=== PATIENT | male | born 1955 | race Caucasian/White ===

== ENCOUNTER 2021-01-28 09:32 | Day surgery (SDC) | payer OTHER ==
[2021-01-28 10:16] LABS: MPV 8.1 fL (7.6-11.3)
[2021-01-28 10:20] LABS: Protime INR 1.1
[2021-01-28 10:31] VITALS: BP 105/58; TEMP 97.8; O2SAT 95; BMI 31.8
--- NOTE | 2021-01-28 10:52 | RAD REPORT ---
EXAM DESCRIPTION: MRI - Brain Wo Cont - 01/28/2021 9:26 am CLINICAL HISTORY: F03.9 COMPARISON: No comparisons TECHNIQUE: Multi-sequence, multiplanar MR imaging of the brain was performed without contrast. FINDINGS: No intracranial hemorrhage, hydrocephalus or extra-axial fluid collections.Mild generalize d brain atrophy is present. No edema or shift of midline structures. No findings to suspect brain mas s. DWI is negative for acute CVA. Midline structures are normally formed. Mastoid air cells and paranasal sinuses are clear. IMPRESSION: No acute or aggressive intracranial abnormalities. Mild brain atrophy.
== END 2021-01-28 10:50 | disposition home or self-care (01) ==
LOC: DS 09:32
PROVIDERS: ATTEND Psychiatry & Neurology Neurology with Special Qualifications in Child Neurology
DX: F03.90 Unspecified dementia, unspecified severity, without behavioral disturbance, psychotic disturbance, mood disturbance, and anxiety (principal); Z53.09 Procedure and treatment not carried out because of other contraindication
CPT/HCPCS: 36415; 70551; 85049; 85610; 85730

== ENCOUNTER 2021-05-06 08:43 | Day surgery (SDC) | payer OTHER ==
[2021-05-01 09:12] LABS: Absolute Lymphocytes (CBC) 1.2 K/uL (0.7-4.9); Hematocrit 45.8 % (39.6-49.0); Lymphocytes % 23.8 % (15.3-44.8); MPV 8.4 fL (7.6-11.3); RBC Red Blood Cell Count 5.08 M/uL (4.33-5.43)
[2021-05-01 09:25] LABS: Potassium 3.9 mmol/L (3.5-5.1)
[2021-05-01 09:31] LABS: Protime INR 1.12
--- NOTE | 2021-05-01 09:55 | RAD REPORT ---
EXAM DESCRIPTION: RAD - Chest Pa And Lat (2 Views) - 05/01/2021 8:43 am CLINICAL HISTORY: Pre op TURP Chest pain. COMPARISON: Chest Pa And Lat (2 Views) dated 08/27/2016; CHEST PA AND LAT 2 VIEW dated 08/27/2009 FINDINGS: The lungs are clear. The heart is normal in size. No displaced fractures. IMPRESSION: No acute or concerning finding suspected.
[~2021-05-06 08:43] MED LIST: AMPICILLIN SODIUM 2 GM in NA CHLORIDE 0.9% 100 ML IVPB SCH; Gentamicin Inj 240 MG in NA CHLORIDE 0.9% 100 ML IVPB SCH
[2021-05-06] MEDS ORDERED: NA CHLORIDE 0.9% 1,000 ML ONE (09:06)
[2021-05-06] MEDS ORDERED: ACETAMINOPHEN 500 MG TAB ONE (09:55)
[2021-05-06] MEDS ORDERED: LIDOCAINE 1% MPF 5 ML VIAL ONE (11:14)
[2021-05-06] MEDS ORDERED: FENTANYL CITR 100 MCG/2 ML ONE (11:14)
[2021-05-06] MEDS ORDERED: propofoL 200 MG/20 ML VIAL IV ONE (11:14)
[2021-05-06] MEDS ORDERED: EPHEDRINE SULF 50 MG/ML VIAL ONE (11:45)
[2021-05-06] MEDS ORDERED: NS 0.9% VIAL 10 ML ONE ×2 (11:45→11:59)
[2021-05-06] MEDS ORDERED: dexAMETHasone 10 MG/ML VIAL ONE (11:54)
[2021-05-06] MEDS ORDERED: Phenylephrine HCl 10 MG/ML 1 ML VIAL ONE (11:58)
[2021-05-06] MEDS ORDERED: ONDANSETRON 4 MG/2 ML VIAL ONE (11:58)
[2021-05-06 13:20] VITALS: TEMP 97.2
[2021-05-06 13:49] VITALS: O2SAT 94
[2021-05-06 14:57] VITALS: BP 113/55
--- NOTE | 2021-05-06 23:54 | OP ---
Surgeon: WILLIAN STEINBERG Preoperative Diagnosis: BPH with urinary retention and lower urinary obstructive symptoms. Postoperative Diagnosis: 1.BPH with urinary retention and lower urinary obstructive symptoms. 2.Balanoposthitis. Principal Procedure: Bipolar transurethral resection of the prostate. Indication For Procedure: Mr. Wright is a 65-year-old gentleman who presented to [facility]rology Clinic hav ing undergone acute urinary retention. He had previously undergone a TURP over 12 years ago, and und erwent cystoscopic evaluation revealing a degree of lateral lobar hypertrophy with a patent bladder n lashaun. As a result, I counseled him on the potential for neuropathic dysfunction of the bladder, which while he had no neurologic diagnoses, he did have a lower extremity tremor, which may have been sugg estive of underlying neurologic disease. As a result, he elected to proceed with bipolar TURP, and i f his urinary symptoms persisted, we would consider urodynamics and a neurologic evaluation. Description Of Procedure: The patient was consented in the preoperative holding area before being tr ansferred to the operative suite where general anesthesia was induced. He was given ampicillin and g entamicin IV antimicrobial prophylaxis, and pneumo boots were provided for DVT prophylaxis. He was p laced in the lithotomy position, padded and secured to the table appropriately. His genitalia were p repped using Hibiclens and draped in standard fashion. The case was begun using urethral sounds to d ilate the meatus and fossa navicularis to 30-Danish. There was evidence of significant balanoposthit is with some BXO-related changes of the glans around the meatus. After dilating the urethra, the 26- Danish resectoscope sheath using a visual chocolate finisher operator was used to traverse the urethra and into the blad bernadette with ease. The bladder was surveyed in its entirety after being decompressed of urine, and no mu cosal lesions, foreign bodies or stones were noted throughout. The previously observed lateral lobar hypertrophy was again observed with regrowth of adenoma in the region of the bladder neck, but persi stent residual lateral lobar hypertrophy on the right as well as the left. I thus resected the adeno matous regrowth from the median lobe that had previously been intravesically projecting, and resected that median channel down to the verumontanum. I then continued the resection into the left lateral lobe of the prostate, taking it all the way to the apex at the bladder neck and more conservatively i n the region of the apex of the prostate. A similar resection was performed on the right lateral lob e of the prostate, resecting the bladder neck until it was widely patent, and fat visualized with a m ore conservative resection but yet leaving it widely patent at the apex of the prostate. Once a smoo th channel was created, all prostate chips were Ellik evacuated from the bladder. Fulguration of ble eding was performed along the way, but then with his bladder decompressed, I fulgurated the entirety of the prostatic fossa until it was completely hemostatic. I then decompressed his bladder again and assessed the prostatic fossa for any intraluminal adenomatous tissue, and I resected any additional tissue seen. Once completely and widely patent from the verumontanum through to the bladder neck, I then ensured all prostate chips were removed, and then again fulgurated the prostatic fossa for any o ozing vessels. I then backfilled his bladder and removed the resectoscope. I then passed a 22-Frenc h 3-way Prado catheter into his bladder with ease, and 30 cc of sterile water was placed in the ballo on. The catheter was placed to moderate traction, and CBI was connected. The efflux was completely clear. He was taken out of the lithotomy position, awakened from general anesthesia, transferred to a stretcher, and then transferred to the recovery room in good condition. Complications: None. Discharge Disposition: I will treat balanoposthitis with triamcinolone nystatin ointment applied twi ce daily for the next 6 weeks. Otherwise, he will be discharged with a catheter with anticipated fol lowup for catheter removal on Wednesday. Alternatively, Wednesday morning would be an option as long as he demonstrates he is able to void without equivocation. WR/MODL Voice ID: [id number] Report ID: [id number]
== END 2021-05-06 14:50 | disposition home or self-care (01) ==
LOC: OR 08:43
PROVIDERS: ATTEND Urology
PROC: 0VB07ZZ Excision of Prostate, Via Natural or Artificial Opening (ICD-10-PCS; principal; 2021-05-06 10:30)
DX: N40.1 Benign prostatic hyperplasia with lower urinary tract symptoms (principal); N47.6 Balanoposthitis; E11.9 Type 2 diabetes mellitus without complications; Z20.822 Contact with and (suspected) exposure to COVID-19
CPT/HCPCS: 93005; 87088; 85025; 87086; 80048; 36415; 85610; 82947 ×2; 88305; 71046; 52630; U0002; J2704; J2370; J1580; J3010; J1100; J7030; J2405; J0290

== ENCOUNTER → 2023-02-28 | Emergency (ER) | payer OTHER ==
[~2023-02-28] MED LIST changes: -AMPICILLIN SODIUM 2 GM in NA CHLORIDE 0.9% 100 ML IVPB SCH; +FLEET ENEMA ADULT PR ONE; -Gentamicin Inj 240 MG in NA CHLORIDE 0.9% 100 ML IVPB SCH; +MAGNESIUM CITRATE 300 ML BOT ONE; +NA CHLORIDE 0.9% 1,000 ML ONE
[2023-02-28 16:11] LABS: Absolute Lymphocytes (CBC) 1.7 K/uL (0.7-4.9); Lymphocytes % 30.7 % (15.3-44.8); MCV 89.4 fL (80-100); MPV 8.2 fL (7.6-11.3); Platelets 238 thou/uL (152-406); RBC Red Blood Cell Count 5.14 M/uL (4.33-5.43)
[2023-02-28 16:25] LABS: Albumin 4.1 g/dL (3.4-5.0); Bilirubin Total 0.5 mg/dL (0.2-1.0); Potassium 3.7 mEq/L (3.5-5.1); Protein, Total 7.4 g/dL (6.4-8.2)
--- NOTE | 2023-02-28 17:10 | RAD REPORT ---
EXAM DESCRIPTION: CTAbdomen Pelvis W Contrast - 02/28/2023 5:00 pm CLINICAL HISTORY: Abdominal pain. Constipation;Abd pain COMPARISON: No comparisons TECHNIQUE: Biphasic CT imaging of the abdomen and pelvis was performed with 100 ml non-ionic IV cont rast. All CT scans are performed using dose optimization technique as appropriate and may include automated exposure control or mA/KV adjustment according to patient size. FINDINGS: The lung bases are clear. The liver, spleen, pancreas, adrenal glands and kidneys are within normal limits. No bowel obstruction, free air, free fluid or abscess. Prominent sigmoid diverticulosis coli of the s igmoid colon with moderate stool retention. The appendix is normal. No evidence of significant lymph adenopathy. Small fat containing umbilical hernia. No suspicious bony findings. IMPRESSION: Prominent sigmoid diverticulosis coli with significant stool retention in the colon. Fol lowup colonoscopy would be suggested for follow-up.
--- NOTE | 2023-02-28 17:46 | EDPHYS ---
Physician Documentation [facility] Name: Tu Wright III Age: 67 yrs Sex: Male : 1955 Arrival Date: 02/28/2023 Time: 14:45 Bed 13 Private MD: ED Physician Keny Curry HPI: 02/28 16:24 This 67 yrs old Male presents to ER via Ambulatory with complaints of Constipation. rn 16:24 The patient presents with abdominal pain in the left lower quadrant. rn 16:25 Onset: The symptoms/episode began/occurred 3 day(s) ago. The symptoms do not radiate. rn Associated signs and symptoms: Pertinent positives: constipation, Pertinent negatives: nausea and vomiting, blood in stools, chest pain, fever, shortness of breath. Modifying factors: The symptoms are alleviated by nothing, the symptoms are aggravated by nothing. Severity of pain: At its worst the pain was mild in the emergency department the pain is unchanged. The patient has been recently seen by a physician:. Patient reports constipation. Has chronic constipation and requires laxatives to go to the bathroom. Has been having abdominal pain and constipation for 3 days. Seen at [place] [facility] and states workup negative. Discharged home. Still is only having liquid stool passed but no formed stool. Mild lower abdominal pain. History of diverticulosis. No blood in stool. No vomiting. No fever.. Historical: - Allergies: 15:18 No Known Allergies; hb - Home Meds: 15:20 Crestor 20 mg oral tablet 1 tab daily [Active]; Tradjenta 5 mg oral tablet 1 tab daily hb [Active]; Abilify 2 mg oral tablet 1 tab daily [Active]; lamotrigine 100 mg oral tablet 1 tab daily [Active]; clonazepam 2 mg Oral tablet 1 tab 2 times per day [Active]; metoprolol tartrate 50 mg Oral tablet daily [Active]; memantine 10 mg oral tablet 2 tab daily [Active]; Linzess 290 mcg oral capsule daily [Active]; melatonin 10 mg Oral tablet 2 tabs once daily at bedtime [Active]; - PMHx: 15:18 Irritable bowel syndrome; Diabetes mellitus; Hypertensive disorder; Pancreatitis; hb - Immunization history:: Adult Immunizations unknown. - Social history:: Smoking status: Patient denies any tobacco usage or history of. - Family history:: not pertinent. - Hospitalizations: : No recent hospitalization is reported. ROS: 16:25 Constitutional: Negative for fever, chills, and weight loss, Cardiovascular: Negative rn for chest pain, palpitations, and edema, Respiratory: Negative for shortness of breath, cough, wheezing, and pleuritic chest pain, Abdomen/GI: Positive for abdominal pain and constipation MS/Extremity: Negative for injury and deformity, Skin: Negative for injury, rash, and discoloration, Neuro: Negative for headache, weakness, numbness, tingling, and seizure, Exam: 16:25 Constitutional: This is a well developed, well nourished patient who is awake, alert, rn and in no acute distress. Cardiovascular: Regular rate and rhythm. No pulse deficits. Respiratory: No increased work of breathing, no retractions or nasal flaring. Abdomen/GI: Soft, mild suprapubic and left lower quadrant tenderness without guarding or rebound. No masses Vital Signs: 15:14 BP 116 / 78; Pulse 62; Resp 18; Temp 97.6; Pulse Ox 100% ; Weight 97.52 kg; Height 6 hb ft. 0 in. ; Pain 5/10; 16:14 BP 128 / 72; Pulse 64; Resp 18; Pulse Ox 100% ; cp4 17:48 BP 132 / 74; Pulse 61; Resp 18; Pulse Ox 100% ; cp4 15:14 Body Mass Index 29.16 (97.52 kg, 182.88 cm) hb 15:14 Pain Scale: Adult hb MDM: 15:21 Patient medically screened. rn 17:43 Differential diagnosis: appendicitis, bowel obstruction, diverticulitis, non-specific rn abd pain. Differential diagnosis: Constipation, dehydration, fecal impaction, diverticulitis. Data reviewed: vital signs, nurses notes. Data reviewed: lab test result(s), radiologic studies, CT scan, and as a result, I will discharge patient. Care significantly affected by the following chronic conditions: Diabetes, Hypertension, Chronic constipation. Counseling: I had a detailed discussion with the patient and/or guardian regarding the historical points, exam findings, and any diagnostic results supporting the discharge/admit diagnosis, lab results, radiology results, the need for outpatient follow up, to return to the emergency department if symptoms worsen or persist or if there are any questions or concerns that arise at home. Special discussion: Based on the patient's Hx, exam, and Dx evaluation, there is no indication for emergent surgery or inpatient Tx. It is understood by the patient/guardian that if the Sx's persist or worsen they need to return immediately for re-evaluation. I discussed with the patient/guardian in detail that at this point there is no indication for admission to the hospital. It is understood, however, that if the symptoms persist or worsen the patient needs to return immediately for re-evaluation. ED course: CT without fecal impaction or obstruction. Patient still constipated. Given mag citrate here. Patient could not tolerate enema so he threw it in the trash. Will discharge home with continuation of fluids and laxatives.. 02/28 15:26 Order name: CBC with Diff; Complete Time: 16:47 rn 02/28 15:26 Order name: CMP; Complete Time: 16:47 rn 02/28 15:26 Order name: Lipase; Complete Time: 16:47 rn 02/28 15:26 Order name: CT Abd/Pelvis - IV Contrast Only; Complete Time: 17:12 rn 02/28 15:26 Order name: IV Saline Lock; Complete Time: 15:59 rn 02/28 15:26 Order name: Labs collected and sent; Complete Time: 15:59 rn Administered Medications: 15:58 Drug: NS 0.9% IV 1000 ml IV at 1 bolus Per protocol; 1000 mL bolus Route: IV; Rate: 1 cp4 bolus; Site: right antecubital; 17:42 Follow up: Response: No adverse reaction; IV Status: Completed infusion cp4 17:29 Drug: Fleet Enema CT [address] once Route: CT; cp4 17:41 Follow up: Response: No adverse reaction cp4 17:38 Drug: Magnesium Citrate PO Liquid 300 ml PO once Route: PO; cp4 17:42 Follow up: Response: No adverse reaction cp4 Disposition Summary: 02/28/23 17:45 Discharge Ordered Notes: Location: Home rn Problem: new rn Symptoms: have improved rn Condition: Stable rn Diagnosis - Constipation, unspecified rn Followup: rn - With: Private Physician - When: As needed - Reason: Recheck today's complaints, Re-evaluation by your physician Discharge Instructions: - Discharge Summary Sheet rn - Constipation, Adult rn Forms: - Medication Reconciliation Form rn - Thank You Letter rn - Antibiotic sample patternmaker - Prescription Opioid Use rn - Patient Portal Instructions rn - Leadership Thank You Letter rn Signatures: Dispatcher [employer] Keny Thompson MD MD rn Baxter, Heather, RN RN hb Potter, Christina cp4
--- NOTE | 2023-02-28 17:46 | ER ---
Nurse's Notes [facility] Name: Tu Wright III Age: 67 yrs Sex: Male : 1955 Arrival Date: 02/28/2023 Time: 14:45 Bed 13 Private MD: Diagnosis: Constipation, unspecified Presentation: 02/28 15:14 Chief complaint: Patient states: Pt c/o generalized abdominal pressure since 02/22. Pt hb states he has not had a bowel movement in at least a week. No relief with Linzess or OTC stool softeners. Pt was evaluated at [place] [facility] 3 days ago. They stated pt was not constipated, no known diagnosis. Coronavirus screen: Vaccine status: Patient reports receiving the 2nd dose of the covid vaccine. At this time, the client does not indicate any symptoms associated with coronavirus-19. Ebola Screen: Patient negative for fever greater than or equal to 101.5 degrees Fahrenheit, and additional compatible Ebola Virus Disease symptoms Patient denies exposure to infectious person. Patient denies travel to an Ebola-affected area in the 21 days before illness onset. No symptoms or risks identified at this time. Initial Sepsis Screen: Does the patient meet any 2 criteria? No. Patient's initial sepsis screen is negative. Does the patient have a suspected source of infection? No. Patient's initial sepsis screen is negative. Risk Assessment: Do you want to hurt yourself or someone else? Patient reports no desire to harm self or others. Onset of symptoms was February 22, 2023. 15:14 Method Of Arrival: Ambulatory hb 15:14 Acuity: AUBREE 3 hb Triage Assessment: 15:19 General: Appears uncomfortable, Behavior is calm, cooperative. Pain: Complains of pain hb in abdomen. GI: Reports constipation. Historical: - Allergies: 15:18 No Known Allergies; hb - Home Meds: 15:20 Crestor 20 mg oral tablet 1 tab daily [Active]; Tradjenta 5 mg oral tablet 1 tab daily hb [Active]; Abilify 2 mg oral tablet 1 tab daily [Active]; lamotrigine 100 mg oral tablet 1 tab daily [Active]; clonazepam 2 mg Oral tablet 1 tab 2 times per day [Active]; metoprolol tartrate 50 mg Oral tablet daily [Active]; memantine 10 mg oral tablet 2 tab daily [Active]; Linzess 290 mcg oral capsule daily [Active]; melatonin 10 mg Oral tablet 2 tabs once daily at bedtime [Active]; - PMHx: 15:18 Irritable bowel syndrome; Diabetes mellitus; Hypertensive disorder; Pancreatitis; hb - Immunization history:: Adult Immunizations unknown. - Social history:: Smoking status: Patient denies any tobacco usage or history of. - Family history:: not pertinent. - Hospitalizations: : No recent hospitalization is reported. Screenin:59 [facility] ED Fall Risk Assessment (Adult) History of falling in the last 3 months, cp4 including since admission No falls in past 3 months (0 pts) Confusion or Disorientation No (0 pts) Intoxicated or Sedated No (0 pts) Impaired Gait No (0 pts) Mobility Assist Device Used No (0 pt) Altered Elimination No (0 pt) Score/Fall Risk Level 0 - 2 = Low Risk Oriented to surroundings, Maintained a safe environment, Educated pt \T\ family on fall prevention, incl call for assistance when getting out of bed, Assessed \T\ reinforced patient's understanding of fall precautions, Hourly rounding (assess needs \T\ fall precautionary measures) done. Abuse screen: Denies threats or abuse. Nutritional screening: No deficits noted. Tuberculosis screening: No symptoms or risk factors identified. Assessment: 15:59 General: Appears in no apparent distress. Behavior is calm, cooperative, appropriate cp4 for age. Pain: Denies pain. 17:57 GI: Bowel sounds present X 4 quads. Abd is soft and non tender X 4 quads. cp4 Vital Signs: 15:14 BP 116 / 78; Pulse 62; Resp 18; Temp 97.6; Pulse Ox 100% ; Weight 97.52 kg; Height 6 hb ft. 0 in. ; Pain 5/10; 16:14 BP 128 / 72; Pulse 64; Resp 18; Pulse Ox 100% ; cp4 17:48 BP 132 / 74; Pulse 61; Resp 18; Pulse Ox 100% ; cp4 15:14 Body Mass Index 29.16 (97.52 kg, 182.88 cm) hb 15:14 Pain Scale: Adult hb ED Course: 14:47 Patient arrived in ED. ts1 15:18 Triage completed. hb 15:21 Keny Curry MD is Attending Physician. rn 15:23 Arm band placed on right wrist. hb 15:45 Yany Hernandez is Primary Nurse. cp4 15:59 Bed in low position. Call light in reach. Side rails up X 1. cp4 15:59 CBC with Diff Sent. cp4 15:59 CMP Sent. cp4 15:59 Lipase Sent. cp4 15:59 No provider procedures requiring assistance completed. Inserted saline lock: 20 gauge cp4 in right antecubital area, using aseptic technique. Blood collected. 17:02 CT Abd/Pelvis - IV Contrast Only In Process Unspecified. EDMS 17:56 Provided Education on: constipation. cp4 17:56 intact, bleeding controlled, No redness/swelling at site. Pressure dressing applied. cp4 Administered Medications: 15:58 Drug: NS 0.9% IV 1000 ml IV at 1 bolus Per protocol; 1000 mL bolus Route: IV; Rate: 1 cp4 bolus; Site: right antecubital; 17:42 Follow up: Response: No adverse reaction; IV Status: Completed infusion cp4 17:29 Drug: Fleet Enema NH 133 ml NH once Route: NH; cp4 17:41 Follow up: Response: No adverse reaction cp4 17:38 Drug: Magnesium Citrate PO Liquid 300 ml PO once Route: PO; cp4 17:42 Follow up: Response: No adverse reaction cp4 Medication: 15:59 VIS not applicable for this client. cp4 Outcome: 17:45 Discharge ordered by . rn 17:56 Discharged to home ambulatory, cp4 17:56 Condition: stable 17:56 Discharge instructions given to patient, Instructed on discharge instructions, follow up and referral plans. Demonstrated understanding of instructions, follow-up care, 17:57 Patient left the ED. cp4 Signatures: Dispatcher [employer] Keny Thompson MD MD rn Baxter, Heather, RN RN hb Simpson, Tanya, PAS PAS ts1 Yany Hernandez cp4
[2023-02-28 18:38] VITALS: BP 132/74; TEMP 97.6; O2SAT 100
== END ==
LOC: ER 14:45
DX: K59.00 Constipation, unspecified (principal); E11.9 Type 2 diabetes mellitus without complications; I10 Essential (primary) hypertension
CPT/HCPCS: 96361; 85025; 36415; 83690; 80053; 74177; 96360; 99284; Q9967; J7030

== ENCOUNTER 2024-01-06 10:36 | Emergency (ER) | payer OTHER ==
[2024-01-06] MEDS ORDERED: GABAPENTIN 300 MG CAP ONE (11:14)
--- NOTE | 2024-01-06 11:17 | EDPHYS ---
Physician Documentation [facility] Name: Tu Wright III Age: 68 yrs Sex: Male : 1955 Arrival Date: 01/06/2024 Time: 10:36 Bed 10 Private MD: ED Physician Keny Curry HPI: 01/05 11:13 This 68 yrs old Male presents to ER via Ambulatory with complaints of Shoulder Pain - rn right. 11:13 The patient or guardian complains of pain. right shoulder. Onset: The symptoms/episode rn began/occurred 5 day(s) ago. Modifying factors: the symptoms are alleviated by nothing. The symptoms are aggravated by movement. Severity of symptoms: At their worst the symptoms were moderate, in the emergency department the symptoms are unchanged. The patient has experienced similar episodes in the past. Patient reports right neck and arm pain, intermittent for 5 days. Has had right arm problems in the past with nerve problems. Has had injections of to alleviate some of the pain in the past. Seen by PCP this week, given prescription for methocarbamol, hydrocodone and steroid. Still having pain so came in for evaluation. Denies any trauma. No weakness. No chest pain.. Historical: - Allergies: 10:49 No Known Allergies; ll1 - PMHx: 10:49 diabetes mellitus; Hypertensive disorder; Irritable bowel syndrome; Pancreatitis; ll1 - Immunization history:: Adult Immunizations up to date. - Social history:: Smoking status: Patient denies any tobacco usage or history of. - Family history:: not pertinent. - Hospitalizations: : No recent hospitalization is reported. ROS: 11:13 Constitutional: Negative for fever, chills, and weight loss, Neck: Positive for neck rn pain Cardiovascular: Negative for chest pain, palpitations, and edema, Respiratory: Negative for shortness of breath, cough, wheezing, and pleuritic chest pain, Abdomen/GI: Negative for abdominal pain, nausea, vomiting, diarrhea, and constipation, MS/Extremity: Positive for right arm pain Neuro: Negative for weakness or numbness Exam: 11:13 Constitutional: This is a well developed, well nourished patient who is awake, alert, rn and in no acute distress. Ambulatory to room without difficulty or assistance Neck: No midline cervical tenderness Cardiovascular: Regular rate and rhythm. No pulse deficits. MS/ Extremity: Pulses equal, no cyanosis. Neurovascular intact. Full, normal range of motion. Equal circumference. No discoloration. Neuro: Awake and alert, GCS 15, equal strength bilaterally Vital Signs: 10:49 BP 132 / 75; Pulse 70; Resp 16; Pulse Ox 95% ; Weight 102.06 kg; Height 6 ft. 0 in. ; ll1 Pain 3/10; 10:49 Body Mass Index 30.52 (102.06 kg, 182.88 cm) ll1 10:49 Pain Scale: Adult ll1 MDM: 10:45 Medical Screening Exam initiated rn 11:13 Differential diagnosis: DJD, tendonitis, Radiculopathy, neuropathy. Data reviewed: rn vital signs, nurses notes, and as a result, I will discharge patient. Counseling: I had a detailed discussion with the patient and/or guardian regarding the historical points, exam findings, and any diagnostic results supporting the discharge/admit diagnosis, the need for outpatient follow up, to return to the emergency department if symptoms worsen or persist or if there are any questions or concerns that arise at home. Special discussion: I discussed with the patient/guardian in detail that at this point there is no indication for admission to the hospital. It is understood, however, that if the symptoms persist or worsen the patient needs to return immediately for re-evaluation. Further emergent ED testing is not indicated at this point in time. I discussed with the patient/guardian in detail the need to arrange with the PCP or specialist further outpatient testing, MRI. ED course: Discussed imaging with patient, unable to get MRI here although considered, instead of getting x-ray or CT C-spine, patient prefers to get MRI as outpatient if symptoms do not improve. Will add gabapentin to his medication regimen. Already on hydrocodone and muscle relaxer.. Administered Medications: 11:17 Drug: Gabapentin PO 300 mg PO once Route: PO; ll1 11:27 Follow up: Response: No adverse reaction ss Disposition Summary: 01/06/24 11:16 Discharge Ordered Notes: Location: Home rn Problem: chronic rn Symptoms: are unchanged rn Condition: Stable rn Diagnosis - Cervical disc disorder with radiculopathy, unspecified cervical region rn Followup: rn - With: Private Physician - When: As needed - Reason: Recheck today's complaints, Re-evaluation by your physician Discharge Instructions: - Discharge Summary Sheet rn Forms: - Medication Reconciliation Form rn - Antibiotic corporate strategy intern - Prescription Opioid Use rn - Patient Portal Instructions rn - Leadership Thank You Letter rn Prescriptions: - gabapentin 100 mg Oral capsule - take 1 capsule ORAL route every 12 hours As needed; 14 capsule; Refills: 0, rn Product Selection Permitted Signatures: Keny Curry MD MD rn Lewis, Lynsay, RN RN ll1 Tracey Ji RN
--- NOTE | 2024-01-06 11:17 | ER ---
Nurse's Notes [facility] Name: Tu Wright III Age: 68 yrs Sex: Male : 1955 Arrival Date: 01/06/2024 Time: 10:36 Bed 10 Private MD: Diagnosis: Cervical disc disorder with radiculopathy, unspecified cervical region Presentation: 01/05 10:49 Chief complaint: Patient states: R shoulder pain since Wednesday. hydrocodone isn't ll1 helping enough yet. Coronavirus screen: Client denies travel out of the [place] in the last 14 days. At this time, the client does not indicate any symptoms associated with coronavirus-19. Ebola Screen: Patient denies travel to an Ebola-affected area in the 21 days before illness onset. Initial Sepsis Screen: Does the patient meet any 2 criteria? No. Patient's initial sepsis screen is negative. Does the patient have a suspected source of infection? No. Patient's initial sepsis screen is negative. Risk Assessment: Do you want to hurt yourself or someone else? Patient reports no desire to harm self or others. Onset of symptoms was January 02, 2024. 10:49 Method Of Arrival: Ambulatory ll1 10:49 Acuity: AUBREE 4 ll1 Historical: - Allergies: 10:49 No Known Allergies; ll1 - PMHx: 10:49 diabetes mellitus; Hypertensive disorder; Irritable bowel syndrome; Pancreatitis; ll1 - Immunization history:: Adult Immunizations up to date. - Social history:: Smoking status: Patient denies any tobacco usage or history of. - Family history:: not pertinent. - Hospitalizations: : No recent hospitalization is reported. Vital Signs: 10:49 BP 132 / 75; Pulse 70; Resp 16; Pulse Ox 95% ; Weight 102.06 kg; Height 6 ft. 0 in. ; ll1 Pain 3/10; 10:49 Body Mass Index 30.52 (102.06 kg, 182.88 cm) ll1 10:49 Pain Scale: Adult ll1 ED Course: 10:37 Patient arrived in ED. im 10:45 Keny Curry MD is Attending Physician. rn 10:51 Triage completed. ll1 11:26 No provider procedures requiring assistance completed. Patient did not have IV access ss during this emergency room visit. Administered Medications: 11:17 Drug: Gabapentin PO 300 mg PO once Route: PO; ll1 : Follow up: Response: No adverse reaction Outcome: 11:16 Discharge ordered by . rn 11: Discharged to home ambulatory, : Condition: good : Discharge instructions given to patient, family, Instructed on discharge instructions, follow up and referral plans. medication usage, Demonstrated understanding of instructions, follow-up care, medications, Prescriptions given X 1, : Patient left the ED. Signatures: Keny Curry MD MD rn Blanchard, Shelby, RN RN ss Walter Lopez RN RN ll1 Marisol Meehan
[2024-01-06 11:30] VITALS: BP 132/75; O2SAT 95
== END 2024-01-06 11:27 | disposition home or self-care (01) ==
LOC: ER 10:36
DX: M50.10 Cervical disc disorder with radiculopathy, unspecified cervical region (principal)
CPT/HCPCS: 99283